=== PATIENT | male | born 2000 | race African-American/Black ===

== ENCOUNTER 2025-07-05 18:33 | Emergency (ER) | payer SELFPAY ==
[~2025-07-05] VITALS: Ht 195.6 cm; Wt 129.0 kg
[2025-07-05 18:43] VITALS: O2SAT 98
[2025-07-05 18:56] VITALS: O2SAT 100
[2025-07-05] MEDS: ONDANSETRON 4MG ODT PO ONE (20:22)
[2025-07-05] MEDS: KETOROLAC 30MG/ML VIAL IM ONE (20:22)
[2025-07-05 20:40] LABS: INFLUENZA TYPE A Presumptive Negative (Pres. Neg.)
[2025-07-05 20:41] LABS: INFLUENZA TYPE B Presumptive Negative (Pres. Neg.)
[2025-07-05] MEDS ORDERED: TUSSL MT (20:45)
[2025-07-05] MEDS ORDERED: IBUP-2028 MT (20:45)
[2025-07-05 20:55] VITALS: BP 142/73; PULSE 68; RESP 16; TEMP 37.2
== END 2025-07-05 20:55 | disposition home or self-care (01) ==
LOC: ER 18:33
DX: U07.1 COVID-19 (principal)
CPT/HCPCS: 99284; 71045; 87426; 87430; 87070; 87804 ×2; 96372; J1885; Q0162